=== PATIENT | female | born 1995 ===

== ENCOUNTER 2018-07-25 21:39 | Emergency (ER) | payer SELFPAY ==
--- NOTE | 2018-07-25 21:41 | UC ---
Bite Injury/Animal HPI - HPI Summary HPI Summary: 22 yo female presents with cat bite to right calf. She tells me that her roommate got an 8 week old kitten that was from the skilled nursing. Cat is UTD on immunizations so far. Tonight pt was playing with the kitten and kitten bit her right calf. Pt sustained a small puncture wound here. She cleansed it with soap and water and an iodine swab stick. Pt is UTD on tetanus. She is concerned about infection. - History of Current Complaint Stated Complaint: CAT BITE Time Seen by Provider: 07/25/18 21:40 Hx Obtained From: Patient Severity Currently: Mild Severity Initially: Mild Pain Intensity: 3 Pain Scale Used: 0-10 Numeric Onset/Duration: Sudden Onset Type of Bite: Animal Has Animal Been Immunized?: Yes Character: Puncture - Allergies/Home Medications Allergies/Adverse Reactions: Allergies Allergy/AdvReac Type Severity Reaction Status Date / Time No Known Allergies Allergy Verified 07/25/18 21:50 Home Medications: Home Medications Multivitamin [Multivitamins] 1 each PO DAILY 07/25/18 [History Confirmed ] PMH/Surg Hx/FS Hx/Imm Hx - Additional Past Medical History Additional PMH: None - Surgical History Surgical History: None - Family History Known Family History: Positive: None - Social History Lives: With Family Alcohol Use: Occasionally Substance Use Type: None Smoking Status (MU): Never Smoked Tobacco Review of Systems All Other Systems Reviewed And Are Negative: Yes Constitutional: Positive: Negative Skin: Positive: Other - Cat bite Respiratory: Positive: Negative Cardiovascular: Positive: Negative Gastrointestinal: Positive: Negative Neurovascular: Positive: Negative Musculoskeletal: Positive: Negative Neurological: Positive: Negative Psychological: Positive: Negative Physical Exam - Summary Physical Exam Summary: GENERAL: NAD. WDWN. No pain distress. SKIN: RIGHT CALF: 1mm superficial puncture wound. NTTP. No erythema, edema, tenderness, bleeding, or drainage. CHEST: No accessory muscle use. Breathing comfortably and in no distress. CV: Pulses intact. Cap refill <2seconds NEURO: Alert. PSYCH: Age appropriate behavior. Triage Information Reviewed: Yes Vital Signs: Vital Signs: Temp Pulse Resp BP Pulse Ox 98.2 F 67 16 113/66 100 07/25/18 21:45 07/25/18 21:45 07/25/18 21:45 07/25/18 21:45 07/25/18 21:45 Vital Signs Reviewed: Yes Bite Injury Course/Dx - Course Course Of Treatment: Cat bite is very superficial and does not appear to have any signs of infection at this time. I suspect this won't cause the pt any problems such as infection or abscess, therefore advised her to monitor the area for 2-3 days and if develops pain, redness, streaking, or swelling to start taking the augmentin. - Differential Dx/Diagnosis Provider Diagnosis: Cat bite Discharge - Sign-Out/Discharge Documenting (check all that apply): Patient Departure All imaging exams completed and their final reports reviewed: No Studies - Discharge Plan Condition: Stable Disposition: HOME Prescriptions: Amoxicillin/Clavulanate TAB* [Augmentin TAB 875*] 875 mg PO BID #14 tab Patient Education Materials: Animal Bite (ED) Referrals: No Primary Care Phys,NOPCP [Primary Care Provider] - Additional Instructions: If you develop a fever, shortness of breath, chest pain, new or worsening symptoms - please call your PCP or go to the ED immediately. Please take the antibiotic as prescribed and monitor the area for any increased pain, redness, or swelling. - Billing Disposition and Condition Condition: STABLE Disposition: Home
[2018-07-25 21:50] VITALS: BP 113/66
== END 2018-07-25 22:07 | disposition home or self-care (01) ==
LOC: UCEAST 21:39
DX: S81.851A Open bite, right lower leg, initial encounter (principal); W55.01XA Bitten by cat, initial encounter; Y93.89 Activity, other specified; Y92.009 Unspecified place in unspecified non-institutional (private) residence as the place of occurrence of the external cause
CPT/HCPCS: 99202; G0463